=== PATIENT | female | born 1955 | race Caucasian/White ===

== ENCOUNTER 2020-05-23 13:05 | Inpatient (IN) | payer MEDICARE, OTHER ==
[~2020-05-23] VITALS: Ht 180.3 cm; Wt 79.8 kg
[~2020-05-23 13:05] MED LIST: CARAFATE1 GM PO; CYMBALTA60 MG PO; DICYCLOMINE HCL20 MG PO; FERROUS SULFAT325 MG PO; FISH OIL500 MG PO; FLONASE 0.05% N16 GM; HYDROCHLOROTHIA25 MG PO; HYDROCODON-ACE1 EAC2 PO; HYDROCODONE/ACETAMIN PO; JANUVIA 100 MG100 MG PO; JARDIANCE25 MG PO; KLONOPIN TAB 00.5 MG PO; LEVOTHYROXINE75 MCG PO; LIPITOR80 MG PO; LOSARTAN POTAS100 MG PO; NEURONTIN800 MG PO; NORVASC 5 MG TAB5 MG PO; OMEPRAZOLE20 M1 PO; OZEMPIC1 MG/0.71 SQ; TOPROL XL 25 MG25 MG PO; VITAMIN B-1000 MCG/M IM
--- NOTE | 2020-05-23 15:58 | NUR ---
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
[2020-05-23] MEDS ORDERED: LEVOFLOXACIN500 MG PO (17:25)
[2020-05-23] MEDS ORDERED: DAILY VITE1 EACH PO (20:07)
[2020-05-23] MEDS ORDERED: FEXOFENADINE H180 MG PO (20:08)
[2020-05-23] MEDS ORDERED: ASPIRIN EC81 MG PO (20:19)
== END 2020-05-24 13:53 | disposition home or self-care (01) | DRG 244 ==
LOC: PROG CARE 14:12 → MED SURG 4 14:43
PROVIDERS: ADMIT Internal Medicine
PROC: B24BZZ4 Ultrasonography of Heart with Aorta, Transesophageal (ICD-10-PCS; principal; 2020-05-23)
PROC: 0JH606Z Insertion of Pacemaker, Dual Chamber into Chest Subcutaneous Tissue and Fascia, Open Approach (ICD-10-PCS; 2020-05-23)
PROC: 02H63JZ Insertion of Pacemaker Lead into Right Atrium, Percutaneous Approach (ICD-10-PCS; 2020-05-23)
PROC: 02HK3JZ Insertion of Pacemaker Lead into Right Ventricle, Percutaneous Approach (ICD-10-PCS; 2020-05-23)
PROC: 4A023FZ Measurement of Cardiac Rhythm, Percutaneous Approach (ICD-10-PCS; 2020-05-23)
PROC: 4A0234Z Measurement of Cardiac Electrical Activity, Percutaneous Approach (ICD-10-PCS; 2020-05-23)
DX: I44.2 Atrioventricular block, complete (principal); I10 Essential (primary) hypertension; E11.9 Type 2 diabetes mellitus without complications; E03.9 Hypothyroidism, unspecified; Z20.822 Contact with and (suspected) exposure to COVID-19; F32.9 Major depressive disorder, single episode, unspecified; F41.9 Anxiety disorder, unspecified; E78.00 Pure hypercholesterolemia, unspecified; E78.5 Hyperlipidemia, unspecified; Z79.82 Long term (current) use of aspirin; Z90.710 Acquired absence of both cervix and uterus
CPT/HCPCS: ECHO; 33208; 71045; 87635; 93005; 93306; 99152; 99153; C1898; C2621; G0379; J1644; J2250; J3010; J3370; J7040; J7050